=== PATIENT | female | born 1980 | race Caucasian/White ===

== ENCOUNTER 2018-08-27 03:08 | Emergency (ER) | payer OTHER ==
[2018-08-27 03:22] VITALS: TEMP 98; BMI 26.6
--- NOTE | 2018-08-27 03:35 | PDOC ---
History of Present Illness - General Chief Complaint: Blood Pressure Problem Stated Complaint: ELEVATED BLOOD PRESSURL,FACIAL PAIN Time Seen by Provider: 08/27/18 03:34 - History of Present Illness Initial Comments: 38yo F with PMH of HTN presenting with intermittent headaches x 5 days. Patient states that these headaches are rated 10/10 lasting about 2-3 minutes at a time and occurring about 2-3 times per hour. Patient states she lost her glasses and in the beginning attributed her symptoms to this, however, measured her blood pressure today and was concerned for a measurement of systolic in the 140s with diastolic 104, which is higher than her baseline. Movement and bright lights make her headaches worse. Patient also endorses nausea with two episodes of vomiting, one yesterday and another the day before. Denies aura or recent injury , trauma, syncope, or loss of consciousness. No focal neurologic deficits. Denies fever, chills, chest pain, abdominal pain. Past History - Past Medical History Allergies/Adverse Reactions: Allergies Allergy/AdvReac Type Severity Reaction Status Date / Time No Known Allergies Allergy Verified 08/27/18 03:21 Home Medications: Ambulatory Orders Hydrochlorothiazide [Hctz -] 0 mg PO DAILY 08/27/18 Losartan Potassium [Cozaar] 100 mg PO DAILY 08/27/18 Norgestimate-Ethinyl Estradiol [Sprintec 28 Day Tablet] 1 each PO DAILY - Suicide/Smoking/Psychosocial Hx Smoking History: Never smoked Have you smoked in the past 12 months: No Information on smoking cessation initiated: No Hx Alcohol Use: No Drug/Substance Use Hx: No Review of Systems - Review of Systems Comments:: Constitutional: no fever, no chills HEENT: +facial pain, +double vision Cardiovascular: no chest pain, no palpitations Respiratory: no cough, no shortness of breath Gastrointestinal: no abdominal pain, +nausea, +vomiting Genitourinary: no dysuria, no frequency Musculoskeletal: no myalgia, no arthralgia Skin: no rash, no itching Neurologic: +headache, no dizziness *Physical Exam - Vital Signs Last Vital Signs Temp Pulse Resp BP Pulse Ox 98.0 F 89 20 166/112 H 97 08/27/18 03:21 08/27/18 03:21 08/27/18 03:21 08/27/18 03:21 08/27/18 03:21 - Physical Exam Comments: General: Awake, alert, and fully oriented, in no acute distress Head: No signs of trauma Eyes: EOMI, sclera anicteric ENT: Moist mucus membranes; tenderness to palpation overlying ethmoid/maxillary sinuses Neck: Normal ROM, supple; no meningismus Lungs: Lungs clear, Normal breath sounds Cardio: Regular rhythm, S1 and S2 present Abdomen: Soft, nontender. No guarding, no rebound, no masses Extremities: Normal range of motion, Distal pulses present SKIN: Warm, Dry, normal turgor Neurologic: Cranial nerves II through XII intact. Normal speech, sensation, strength, wkejre-wh-axmw/jlsk-dz-yqub coordination, and gait. Moderate Sedation - Procedure Monitoring Vital Signs: Procedure Monitoring Vital Signs Temperature 98.0 F 08/27/18 03:21 Pulse Rate 89 08/27/18 03:21 Respiratory Rate 20 08/27/18 03:21 Blood Pressure 166/112 H 08/27/18 03:21 O2 Sat by Pulse Oximetry (%) 97 08/27/18 03:21 Medical Decision Making - Medical Decision Making 38yo F with PMH of HTN presenting with intermittent headaches x 5 days. -DDX includes but not limited to migraine headache, hypertensive emergency, temporal arteritis, brain bleed, nasal congestion -1L NS, 10 Reglan, 30 Toradol -Reassess 08/27/18 05:01 BP now 130/100 Patient reports no headache Plan to discharge 08/27/18 05:54 *DC/Admit/Observation/Transfer Diagnosis at time of Disposition: Headache - Discharge Dispostion Disposition: HOME Condition at time of disposition: Improved - Referrals - Patient Instructions Printed Discharge Instructions: DI for Headache Additional Instructions: You came into the ED for headache. You had a normal neurologic exam. We gave you medicine which improved your symptoms. You can take vujc-frz-tnnfzuf tylenol or motrin for pain. Follow the instructions on the medication bottle. Follow-up with your primary care doctor this week to discuss this ED visit and to further evaluate your symptoms. RETURN if: you have severe headache, high fever, persistent vomiting, changes in vision, seizures, or any other new or concerning symptoms. If you think you are having an emergency, call for emergency medical services or present to the emergency department right away - Post Discharge Activity
--- NOTE | 2018-08-27 04:23 | PDOC ---
Attending Attestation - Resident Resident Name: Nayeli Javed - ED Attending Attestation I have performed the following: I have examined & evaluated the patient, The case was reviewed & discussed with the resident, I agree w/resident's findings & plan, Exceptions are as noted
[2018-08-27] MEDS ORDERED: SODIUM CHLORIDE 1,000 ML IV STA (04:33)
[2018-08-27] MEDS ORDERED: KETOROLAC TROMETHAMINE 30 MG/1 ML VIAL IVPUSH ONE (04:33)
[2018-08-27] MEDS ORDERED: METOCLOPRAMIDE HCL INJECTION 10 MG/2 ML VIAL IVPUSH ONE (04:33)
[2018-08-27] MEDS ORDERED: METOCLOPRAMIDE HCL INJECTION 10 MG/2 ML VIAL ONE (04:37)
[2018-08-27] MEDS ORDERED: KETOROLAC TROMETHAMINE 30 MG/1 ML VIAL ONE (04:37)
[2018-08-27 05:28] VITALS: BP 130/100; PULSE 88
== END 2018-08-27 06:21 | disposition home or self-care (01) ==
LOC: JER 03:08
PROC: 3E033GC Introduction of Other Therapeutic Substance into Peripheral Vein, Percutaneous Approach (ICD-10-PCS; principal; 2018-08-27)
PROC: 3E0333Z Introduction of Anti-inflammatory into Peripheral Vein, Percutaneous Approach (ICD-10-PCS; 2018-08-27)
DX: R51 Headache (principal); I10 Essential (primary) hypertension
CPT/HCPCS: 99282-25; J7030

== ENCOUNTER 2019-06-24 23:13 | Emergency (ER) | payer OTHER ==
[2019-06-24 23:22] VITALS: BP 127/90; PULSE 87; TEMP 98.5; BMI 26.3
--- NOTE | 2019-06-24 23:32 | PDOC ---
History of Present Illness - General Chief Complaint: Headache Stated Complaint: HEADACHE Time Seen by Provider: 06/24/19 23:31 - History of Present Illness Initial Comments: 06/25/19 00:02 39 year old woman with a history of migraines and HTN who presents with sudden onset headache that onset approx 2 hours ago. The patient was drinking beer when she felt her headache come on and she took her ergot medication without relief. She states that the pain is much worse than her regular headaches. She denies any changes in vision and hearing, denies chest pain, shortness of breath , denies nausea or vomiting, denies recent illness, denies dysuria, hematuria. She reports some diarrhea for the past 2 days. She has no other complaints. ROS GENERAL/CONSTITUTIONAL: No fever or chills. No weakness. HEAD, EYES, EARS, NOSE AND THROAT: No change in vision. CARDIOVASCULAR: No chest pain or shortness of breath RESPIRATORY: No cough, wheezing, or hemoptysis. GASTROINTESTINAL: No nausea, vomiting, diarrhea or constipation. GENITOURINARY: No dysuria, frequency, or change in urination. MUSCULOSKELETAL: No joint or muscle swelling or pain. No neck or back pain. SKIN: No rash NEUROLOGIC: + headache, No vertigo, loss of consciousness, or change in strength /sensation. GENERAL: Awake, alert, and fully oriented, in no acute distress HEAD: No signs of trauma, normocephalic, atraumatic EYES: PERRLA, EOMI, sclera anicteric, conjunctiva clear ENT: oropharynx clear without exudates. Moist mucosa NECK: Normal ROM, supple LUNGS: No distress, speaks full sentences, clear to auscultation bilaterally HEART: Regular rate and rhythm, normal S1 and S2, no murmurs, rubs or gallops, peripheral pulses normal and equal bilaterally. ABDOMEN: Soft, nontender, normoactive bowel sounds. No guarding, no rebound. No masses EXTREMITIES : Normal inspection, Normal range of motion, no edema. No clubbing or cyanosis. NEUROLOGICAL: Cranial nerves II through XII grossly intact. Normal speech, normal gait, no focal sensorimotor deficits SKIN: Warm, Dry, normal turgor, no rashes or lesions noted MDM DDX including but not limited to: headache r/o intracranial bleed W/U: - cbc, cmp, caogs, head ct TX: - headache cocktail ED Course: Yamini Ramires, PGY2 Emergency Medicine Past History - Past Medical History Allergies/Adverse Reactions: Allergies Allergy/AdvReac Type Severity Reaction Status Date / Time No Known Allergies Allergy Verified 06/24/19 23:22 Home Medications: Ambulatory Orders Hydrochlorothiazide [Hctz -] 0 mg PO DAILY 08/27/18 Losartan Potassium [Cozaar] 100 mg PO DAILY 08/27/18 Norgestimate-Ethinyl Estradiol [Sprintec 28 Day Tablet] 1 each PO DAILY COPD: No HTN: Yes - Psycho Social/Smoking Cessation Hx Smoking History: Never smoked Have you smoked in the past 12 months: No Hx Alcohol Use: Yes Drug/Substance Use Hx: No *Physical Exam - Vital Signs Last Vital Signs Temp Pulse Resp BP Pulse Ox 98.5 F 87 18 127/90 99 06/24/19 23:18 06/24/19 23:18 06/24/19 23:18 06/24/19 23:18 06/24/19 23:18 ED Treatment Course - LABORATORY CBC & Chemistry Diagram: 06/25/19 00:10 06/25/19 00:10 Discharge - Discharge Information Problems reviewed: Yes Clinical Impression/Diagnosis: Headache Condition: Stable Disposition: HOME - Admission No - Follow up/Referral - Patient Discharge Instructions Patient Printed Discharge Instructions: DI for Migraine Additional Instructions: You were seen in the ED for a headache. You had symptomatic improvement. You should follow up with your family doctor within 1 week. You have a referral for a neurologist and should see them within 1 week. Return to the ED if you experience worsening headache, dizziness, nausea, or any other concerning symptoms. - Post Discharge Activity
[2019-06-24] MEDS ORDERED: PROCHLORPERAZINE INJECTION 10 MG/2 ML VIAL IVPB ONE (23:59)
[2019-06-24] MEDS ORDERED: ACETAMINOPHEN 1000 MG/100 ML VIAL (NON FORMULARY) IVPB ONE (23:59)
--- NOTE | 2019-06-25 00:08 | PDOC ---
Attending Attestation - Resident Resident Name: Yamini Ramires - ED Attending Attestation I have performed the following: I have examined & evaluated the patient, The case was reviewed & discussed with the resident, I agree w/resident's findings & plan - HPI HPI: 06/25/19 00:34 Pt comes with a bad headache that began today. - Physicial Exam PE: 06/25/19 00:34 Agree with resident exam. - Medical Decision Making 06/25/19 01:26 Pt has normal CBC; chem shows that she has slightly low K+ Pt is HCG negative and she will be sent for a CT of her head. If normal, we will offer patient an LP, as we need to make sure her opening pressure is normal, and want to evaluate her CSF. 06/25/19 02:46 Patient Name: ELVIS BLEVINS THIS IS A PRELIMINARY REPORT FROM [facility] DATE OF SERVICE: 2019-06-25 01:31:23 IMAGES: 163 EXAM: HEAD CT WITHOUT CONTRAST HISTORY: 39-year-old female with sudden onset of headache COMPARISON: None. FINDINGS: No acute intracranial hemorrhage mass effect or midline shift. Quinteros-white differentiation is maintained. Ventricles sulci and basilar cisterns appear unremarkable. Calvarium is intact. The sinuses and mastoid air cells are clear. IMPRESSION No acute intracranial hemorrhage mass effect or midline shift Pt feeling better and doesn't want LP at this time. She understands that without LP we cannot fully r/o bleed or elevated ICP which can imapct vision. She will be discharged and asked to follow with neurology.
[2019-06-25] MEDS ORDERED: ACETAMINOPHEN INJECTION 100 ML IVPB ONE (00:21)
[2019-06-25] MEDS ORDERED: PROCHLORPERAZINE INJECTION 10 MG/2 ML VIAL ONE (00:22)
[2019-06-25 01:00] LABS: BASO % 0.3 % (0-2.0); EOS % 0.5 % (0-4.5); HEMATOCRIT 36.3 % (32.4-45.2); LYMPH % 36.3 % (8-40); MCH 28.2 pg (25.7-33.7); MCHC 33.1 g/dl (32.0-36.0); MEAN CELL VOLUME 85.2 fl (80-96); MONO % 5.4 % (3.8-10.2); NEUT % 57.5 % (42.8-82.8); PLATELET COUNT 300 K/MM3 (134-434); RBC 4.26 M/mm3 (3.60-5.2); RDW 15.5 % (11.6-15.6); WHITE BLOOD COUNT 9.5 K/mm3 (4.0-10.0)
[2019-06-25 01:23] LABS: ALBUMIN 3.7 g/dl (3.4-5.0); BILIRUBIN,TOTAL 0.3 mg/dL (0.2-1); BLOOD UREA NITROGEN 7.2 mg/dL (7-18); CALCIUM 8.5 mg/dL (8.5-10.1); CREATININE 0.8 mg/dL (0.55-1.3); POTASSIUM 3.3 mmol/L (3.5-5.1); TOT PROT 7.8 g/dl (6.4-8.2)
[2019-06-25 01:25] LABS: PH,URINE 5.5 (5.0-8.0); URINE APPEARANCE CLEAR; URINE BILIRUBIN NEGATIVE (NEGATIVE); URINE COLOR YELLOW; URINE GLUCOSE (UA) NEGATIVE (NEGATIVE); URINE KETONE NEGATIVE (NEGATIVE); URINE LEUK ESTERASE NEGATIVE (NEGATIVE); URINE NITRITE NEGATIVE (NEGATIVE); URINE PROTEIN NEGATIVE (NEGATIVE); URINE UROBILINOGEN 0.2 mg/dL (0.2-1.0)
[2019-06-25 02:42] LABS: INR 1.03 (0.83-1.09); PROTHROMBIN TIME (PATIENT) 12.2 SEC (9.7-13.0)
[2019-06-25] MEDS ORDERED: POTASSIUM CHLORIDE TABS 20 MEQ TABLET.ER (FP) PO ONE ×2 (02:46→02:53)
== END 2019-06-25 03:03 | disposition home or self-care (01) ==
LOC: JER 23:13
PROC: 3E033NZ Introduction of Analgesics, Hypnotics, Sedatives into Peripheral Vein, Percutaneous Approach (ICD-10-PCS; principal; 2019-06-24)
PROC: 3E033GC Introduction of Other Therapeutic Substance into Peripheral Vein, Percutaneous Approach (ICD-10-PCS; 2019-06-24)
PROC: 3E033GC Introduction of Other Therapeutic Substance into Peripheral Vein, Percutaneous Approach (ICD-10-PCS; 2019-06-24)
DX: R51 Headache (principal); I10 Essential (primary) hypertension; E87.6 Hypokalemia
CPT/HCPCS: 36415; 70450-TC; 80053; 81003; 84703; 85025; 85610; 87086; 96374; 96375; 99282-25; J0131

== ENCOUNTER 2021-07-15 15:06 | Emergency (ER) | payer OTHER ==
[2021-07-15 15:23] VITALS: BP 145/95; PULSE 79; TEMP 98; BMI 31.1
[2021-07-15] MEDS ORDERED: GABAPENTIN 300 MG CAPSULE PO ONE (16:19)
[2021-07-15] MEDS ORDERED: LIDOCAINE 5% TOPICAL PATCH TP ONE (16:21)
[2021-07-15] MEDS ORDERED: METHOCARBAMOL 500 MG TABLET PO ONE (16:21)
[2021-07-15] MEDS ORDERED: LIDOCAINE 5% TOPICAL PATCH ONE (16:22)
[2021-07-15] MEDS ORDERED: METHOCARBAMOL 500 MG TABLET ONE (16:23)
[2021-07-15] MEDS ORDERED: GABAPENTIN 100 MG CAPSULE ONE (16:24)
[2021-07-15] MEDS ORDERED: LIDOCAINE PATCH REMOVAL MC SCH (22:00)
== END 2021-07-15 16:50 | disposition home or self-care (01) ==
LOC: JERFT 15:06
DX: M54.32 Sciatica, left side (principal)
CPT/HCPCS: 99283-25

== ENCOUNTER 2022-12-27 04:03 | Emergency (ER) | payer OTHER ==
[2022-12-27 04:13] VITALS: BP 156/92; PULSE 91; RESP 18; TEMP 97.5; BMI 29.2
[2022-12-27] MEDS ORDERED: ACETAMINOPHEN 500 MG TABLET (FP) PO ONE (05:52)
[2022-12-27] MEDS ORDERED: ACETAMINOPHEN 325 MG TABLET (FP) ONE (05:55)
[2022-12-27] MEDS ORDERED: DIPHTH,PERTUSS(ACELL),TET 0.5 ML DISP.SYRIN IM ONE ×2 (06:19→06:21)
== END 2022-12-27 07:01 | disposition home or self-care (01) ==
LOC: JER 04:03
PROC: 0HQFXZZ Repair Right Hand Skin, External Approach (ICD-10-PCS; principal; 2022-12-27)
PROC: 3E0234Z Introduction of Serum, Toxoid and Vaccine into Muscle, Percutaneous Approach (ICD-10-PCS; 2022-12-27)
DX: S01.01XA Laceration without foreign body of scalp, initial encounter (principal); F19.920 Other psychoactive substance use, unspecified with intoxication, uncomplicated; W17.89XA Other fall from one level to another, initial encounter; V49.88XA Car occupant (driver) (passenger) injured in other specified transport accidents, initial encounter
CPT/HCPCS: 12001-25; 70450-TC; 72125-TC; 90471; 90715; 99284-25

== ENCOUNTER 2023-01-06 15:40 | Emergency (ER) | payer OTHER ==
[2023-01-06 15:46] VITALS: BP 140/98; PULSE 94; RESP 18; TEMP 98; BMI 31.1
== END 2023-01-06 15:55 | disposition home or self-care (01) ==
LOC: JERFT 15:40
DX: Z48.02 Encounter for removal of sutures (principal)
CPT/HCPCS: 99281-25